=== PATIENT | female | born 1995 | race American Indian/Alaskan Native ===

== ENCOUNTER 2018-12-13 12:59 | Emergency (ER) | payer SELFPAY ==
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
[2018-12-13] MEDS ORDERED: ULTRAM PO ONE (13:54)
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
[2018-12-14 14:05] VITALS: BP 116/70
== END 2018-12-13 16:14 | disposition home or self-care (01) ==
LOC: ED 12:59
DX: S52.615A Nondisplaced fracture of left ulna styloid process, initial encounter for closed fracture (principal); S52.592A Other fractures of lower end of left radius, initial encounter for closed fracture; J45.909 Unspecified asthma, uncomplicated; F17.200 Nicotine dependence, unspecified, uncomplicated; V49.49XA Driver injured in collision with other motor vehicles in traffic accident, initial encounter; Y93.89 Activity, other specified; Y92.410 Unspecified street and highway as the place of occurrence of the external cause; Y99.8 Other external cause status

== ENCOUNTER 2019-04-20 11:34 | Emergency (ER) | payer MEDICAID ==
--- NOTE | 2019-04-20 11:56 | Emergency Department Report ---
Blank Doc - Documentation Documentation: This is a 24-year-old female that presents with abscess to buttock area. Stated has some drainage. This initial assessment/diagnostic orders/clinical plan/treatment(s) is/are subject to change based on patient's health status, clinical progression and re- assessment by fellow clinical providers in the ED. Further treatment and workup at subsequent clinical providers discretion. Patient/guardians urged not to elope from the ED as their condition may be serious if not clinically assessed and managed. Initial orders include: 1- Patient sent to [facility] for further evaluation and treatment
[2019-04-20 11:57] VITALS: BP 113/70
--- NOTE | 2019-04-20 14:13 | Emergency Department Report ---
Abscess Boil HPI - HPI Chief Complaint: Skin/Abscess/Foreign Body Stated Complaint: BUTTOCK WOUND CARE/DILLON Time Seen by Provider: 04/20/19 11:55 Duration: 5 Days Severity: Mild History: Yes Pain, Yes Purulent Drainage, No Fever, No Numbness, No Foreign Body, No Previous History, No Insect Bite HPI: Pt comes to the ER today complaining of an abscess on her buttocks that has been open and draining for several days. She states it is painful she has no history of the same. She is on no home medications. Home Medications: Previous Rx's Medication Instructions Recorded Last Taken Type Naproxen [Naprosyn] 500 mg PO BID PRN #20 tablet 04/20/19 Unknown Rx cephALEXin [Keflex] 500 mg PO Q12HR #20 cap 04/20/19 Unknown Rx Allergies/Adverse Reactions: Allergies Allergy/AdvReac Type Severity Reaction Status Date / Time No Known Allergies Allergy Unverified 12/13/18 13:04 ED Review of Systems ROS: Stated complaint: BUTTOCK WOUND CARE/DILLON Other details as noted in HPI Comment: All other systems reviewed and negative ED Past Medical Hx - Past Medical History Previous Medical History?: Yes Hx Asthma: Yes - Surgical History Past Surgical History?: Yes Additional Surgical History: C section - Social History Smoking Status: Current Every Day Smoker Substance Use Type: Alcohol - Medications Home Medications: Home Medications Medication Instructions Recorded Confirmed Last Taken Type Naproxen [Naprosyn] 500 mg PO BID PRN #20 tablet 04/20/19 Unknown Rx cephALEXin [Keflex] 500 mg PO Q12HR #20 cap 04/20/19 Unknown Rx ED Abscess Boil Physical Exam - Exam General: Vital signs noted. No distress. Alert and acting appropriately. Size: 2 cm Exam: Yes Tenderness, Yes Heart Murmur, Yes Normal Neurologic Exam, Yes Normal Circulation, No Fluctuance, No Surrounding Cellulites/Erythema, No Lymphangitis, No Crepitation ED Course Vital Signs 04/20/19 11:55 Temperature 99.0 F Pulse Rate 90 Respiratory 18 Rate Blood Pressure 113/70 O2 Sat by Pulse 99 Oximetry Critical care attestation.: If time is entered above; I have spent that time in minutes in the direct care of this critically ill patient, excluding procedure time. ED Medical Decision Making - Medical Decision Making simple open draining abscess Vital Signs 06/10/19 11:55 Temperature 99.0 F Pulse Rate 90 Respiratory 18 Rate Blood Pressure 113/70 O2 Sat by Pulse 99 Oximetry ED Disposition Clinical Impression: Abscess Disposition: DC-01 TO HOME OR SELFCARE Is pt being admited?: No Does the pt Need Aspirin: No Condition: Stable Instructions: Abscess (ED) Additional Instructions: DIET TOLERATED MEDS ORDERED TODAY IN ER FOLLOW INSTRUCTIONS ON THE BOTTLE FOLLOW UP PCP WITHIN 48 HOURS TO ENSURE YOU ARE GETTING BETTER ACTIVITY TOLERATED MOTRIN OR TYLENOL FOR PAIN OR FEVER RETURN TO THE ER FOR WORSENING SYMPTOMS NOT RELIEVED BY YOUR MEDICATIONS. Referrals: MASTER AVILEZ MD [Primary Care Provider] - 3-5 Days Time of Disposition: 14:12
== END 2019-04-20 14:26 | disposition home or self-care (01) ==
LOC: ED 11:34
DX: L02.31 Cutaneous abscess of buttock (principal); J45.909 Unspecified asthma, uncomplicated; F17.200 Nicotine dependence, unspecified, uncomplicated
CPT/HCPCS: 99282

== ENCOUNTER 2021-08-01 00:13 | Emergency (ER) | payer SELFPAY ==
[2021-08-01 01:28] VITALS: BP 118/81
== END 2021-08-01 12:00 | disposition left against medical advice (07) ==
LOC: ED 00:13
DX: Z00.00 Encounter for general adult medical examination without abnormal findings (principal); Z53.21 Procedure and treatment not carried out due to patient leaving prior to being seen by health care provider